=== PATIENT | female | born 1975 | race Caucasian/White ===

== ENCOUNTER 2016-12-22 07:37 | Emergency (ER) | payer MEDICAID ==
[2016-12-22] MEDS ORDERED: LIDOCAINE 1% INJ-PF (10 MG/ML) 30 ML SDV INJ ONE (08:40)
--- NOTE | 2016-12-22 08:44 | ER Document Report ---
HPI - HPI Pain Level: 2 Notes: Patient is a 41-year-old female presents the ED complaining of an abscess to her left cheek 1 week. Patient states that the abscess was there a month ago, but was resolved with warm compresses and an antibiotic that she had been on for an axillary abscess. Patient denies any history of MRSA. Patient states that she has not been able to get any drainage out the last week. Patient states that she does have some discomfort, but it is not worsening at this time. Denies any drug allergies, daily medications, other significant past medical history. Patient admits to smoking but denies any other illicit drug use. - ROS Notes: REVIEW OF SYSTEMS: CONSTITUTIONAL : Denies fever, chills, or sweats. Denies recent illness. EENT: Denies eye, ear, throat, or mouth pain or symptoms. Denies nasal or sinus congestion or discharge. Denies throat, tongue, or mouth swelling or difficulty swallowing. CARDIOVASCULAR: Denies chest pain. Denies palpitations or racing or irregular heart beat. Denies ankle edema. RESPIRATORY: Denies cough, cold, or chest congestion. Denies shortness of breath, difficulty breathing, or wheezing. GASTROINTESTINAL: Denies abdominal pain or distention. Denies nausea, vomiting , or diarrhea. Denies blood in vomitus, stools, or per rectum. Denies black, tarry stools. Denies constipation. GENITOURINARY: Denies difficulty urinating, painful urination, burning, frequency, blood in urine, or discharge. MUSCULOSKELETAL: Denies back or neck pain or stiffness. Denies joint pain or swelling. SKIN: see hpi NEUROLOGICAL: Denies confusion or altered mental status. Denies passing out or loss of consciousness. Denies dizziness or lightheadedness. Denies headache. Denies weakness or paralysis or loss of use of either side. Denies problems with gait or speech. Denies sensory loss, numbness, or tingling. ALL OTHER SYSTEMS REVIEWED AND NEGATIVE. Dictation was performed using [employer] voice recognition software - REPRODUCTIVE Reproductive: DENIES: : - DERM Skin Color: Normal Past Medical History - Social History Smoking Status: Current Every Day Smoker Frequency of alcohol use: None Drug Abuse: None Family History: Reviewed & Not Pertinent Patient has suicidal ideation: No Patient has homicidal ideation: No Renal/ Medical History: Denies: Hx Peritoneal Dialysis GI Medical History: Reports: Hx Diverticulitis Past Surgical History: Reports: Hx Cholecystectomy, Hx Gynecologic Surgery - Patrial hyst, Hx Hysterectomy Vertical Provider Document - CONSTITUTIONAL Agree With Documented VS: Yes Notes: PHYSICAL EXAMINATION: GENERAL: Well-appearing, well-nourished and in no acute distress. HEAD: Atraumatic, normocephalic. EYES: Pupils equal round and reactive to light, extraocular movements intact, sclera anicteric, conjunctiva are normal. ENT: EAC clear b/l. TM's intact b/l without erythema, fluid, or perforation. Nares patent and without discharge. oropharynx clear without exudates. No tonsilar hypertrophy or erythema. Moist mucous membranes. No sinus tenderness. uvula midline, no palatine shift, no tongue protrusion NECK: Normal range of motion, supple without lymphadenopathy. No rigidity/ meningismus. LUNGS: Breath sounds clear to auscultation bilaterally and equal. No wheezes rales or rhonchi. HEART: Regular rate and rhythm without murmurs, rubs, gallops. Extremities: No cyanosis, clubbing, or edema b/l. Peripheral pulses 2+. Capillary refill less than 3 seconds. NEUROLOGICAL: Normal speech, normal gait. Normal sensory, motor exams PSYCH: Normal mood, normal affect. SKIN: 1.5cm abscess to the left cheek. No discharge. + erythema noted without streaks. + mild tenderness. - INFECTION CONTROL TRAVEL OUTSIDE OF THE [place] IN LAST 30 DAYS: No - RESPIRATORY O2 Sat by Pulse Oximetry: 98 Course - Re-evaluation Re-evalutation: 12/22/16 10:07 Patient is an afebrile, well-hydrated, 41-year-old female presents the ED with an abscess to her left cheek. Vitals are stable. PE otherwise unremarkable. Incision and drainage performed successfully without complications and small amount of packing was placed. I will place her on Keflex and Bactrim to take as directed. Conservative measures for symptoms otherwise as needed. Wound dressing applied today. Wound instructions reviewed with patient. Recheck with her PCM in 2-3 days. Return to the ED with any worsening/concerning symptoms otherwise as reviewed in discharge. Patient is in agreement. - Vital Signs Vital signs: Temp Pulse Resp BP Pulse Ox 98.3 F 106 H 16 133/82 H 98 12/22/16 07:40 12/22/16 07:40 12/22/16 07:40 12/22/16 07:40 12/22/16 07:40 Procedures - Incision and Drainage Left Face Time completed: 09:45 Type: Simple Anesthetic type: 1% Lidocaine mL's of anesthetic: 6 Blade size: 11 I&D procedure: Betadine prep applied, Shurclens applied, Iodoform packing placed , Sterile dressing applied Incision Method: Incision made by scalpel Amount/type of drainage: 8cc purulent material and blood Notes: 12/22/16 10:09 Incision and drainage procedure, risks, benefits reviewed with the patient. Verbal and written consent obtained. Sterile technique utilized. The area was extensively cleansed utilizing shurclens, betadine, and saline. A 22-gauge needle was utilized to anesthetize the area using 6 mL's of 1% lidocaine without epinephrine. Once adequate anesthesia was provided, a #11 scalpel was utilized to make a 1cm incision at the site of the abscess. Copious amounts of pustular material was expressed. Wound culture obtained. Hemostats were then utilized to break up any remaining muscular pockets within the abscess. The wound was then lightly packed using 1/4" iodoform. Wound dressing and triple antibiotic placed. Minimal blood loss (approximately 3-4 cc's). Patient tolerated procedure well. No complications. Discharge - Discharge Clinical Impression: Abscess Condition: Stable Disposition: HOME, SELF-CARE Instructions: Abscess ([facility]), Cephalexin ([facility]), Post Incision and Drainage, Trimethoprim-Sulfa ([facility]) Additional Instructions: Do not shower or bathe for 24 hours. After 24 hours she may shower but no submersion of the wound under water. Keep the original dressing on the wound for 24 hours unless the drainage stops through. Change the dressing daily thereafter and use a small amount of triple antibiotic ointment over the open wound. Return to the ED and/or your PCM in 2-3 days for recheck and continue direction for wound packing. Monitor for any signs of worsening pain or redness , streaks, and/or fever. Return to the ED if noticing any of the above symptoms or as needed. Take medications as directed. Return to the ED with any worsening symptoms and/or development of fever, headache, chest pain, palpitations, syncope, shortness of breath, trouble breathing, abdominal pain, n/v/d, red streaks, worsening pain, or other worsening symptoms that are concerning to you. Prescriptions: Cephalexin Monohydrate [Keflex 500 mg Capsule] 500 mg PO BID #20 capsule Sulfamethoxazole/Trimethoprim [Bactrim Ds Tablet] 1 each PO BID #20 tablet Forms: Smoking Cessation Education, Elevated Blood Pressure Referrals: LIZABETH MARINELLI MD [ACTIVE STAFF] - Follow up as needed
[2016-12-22 10:24] VITALS: BP 119/71
== END 2016-12-22 10:26 | disposition home or self-care (01) ==
LOC: ER 07:37
PROC: 0H91XZZ Drainage of Face Skin, External Approach (ICD-10-PCS; principal; 2016-12-22)
DX: L02.01 Cutaneous abscess of face (principal); F17.200 Nicotine dependence, unspecified, uncomplicated
CPT/HCPCS: 99283; 87070; 87205; 87075; 87077; 87186; 10060; A6266; J3490